=== PATIENT | female | born 1990 | race Two or more races ===

== ENCOUNTER 2023-06-04 15:30 | Observation (INO) | payer SELFPAY ==
[~2023-06-04] VITALS: Ht 154.9 cm; Wt 69.4 kg
[2023-06-04] MEDS ORDERED: METF-370 PO (16:43)
[2023-06-04] MEDS ORDERED: PREN-129 OR (16:44)
== END 2023-06-04 17:00 | disposition home or self-care (01) ==
LOC: LDRP 15:30
PROVIDERS: ADMIT Obstetrics & Gynecology; ATTEND Obstetrics & Gynecology
DX: O24.419 Gestational diabetes mellitus in pregnancy, unspecified control (principal); Z3A.37 37 weeks gestation of pregnancy
CPT/HCPCS: 59025; 76818; 81002; 82962; G0378

== ENCOUNTER 2023-06-11 18:38 | Observation (INO) | payer MEDICAID ==
[~2023-06-11 18:38] MED LIST: METF-370 PO; PREN-129 OR
== END 2023-06-11 20:31 | disposition home or self-care (01) ==
LOC: LDRP 18:38
PROVIDERS: ADMIT Obstetrics & Gynecology; ATTEND Obstetrics & Gynecology
DX: O24.419 Gestational diabetes mellitus in pregnancy, unspecified control (principal); Z3A.38 38 weeks gestation of pregnancy
CPT/HCPCS: 59025; 76818; 81002; 82948; 82962; 94760; G0378

== ENCOUNTER 2023-06-15 15:54 | Observation (INO) | payer MEDICAID | END 2023-06-15 18:04 | disposition home or self-care (01) | LOC: LDRP 15:54 | PROVIDERS: ADMIT Obstetrics & Gynecology; ATTEND Obstetrics & Gynecology | DX: O24.419 Gestational diabetes mellitus in pregnancy, unspecified control (principal); Z3A.38 38 weeks gestation of pregnancy | CPT/HCPCS: 59025; 76818; 81002; 82948; 82962; G0378 ==

== ENCOUNTER 2023-06-17 04:18 | Inpatient (IN) | payer MEDICAID ==
[~2023-06-17] VITALS: Ht 152.4 cm; Wt 69.9 kg
[2023-06-17] MEDS ORDERED: BUTORPHANOL TARTRATE 2 MG/1 ML VIAL IV PRN ×2 (04:45)
[2023-06-17 05:09] LABS: Basophils # (auto) 0.1 10 ^3/uL (0-0.2); Basophils % (auto) 0.5 % (0.0-2.0); Eosinophils # (auto) 0.1 10 ^3/uL (0-0.8); Hematocrit 34.4 % (36.0-46.0); Hemoglobin 11.7 g/dL (12.2-16.2); Lymphocytes # (auto) 2.9 10 ^3/uL (0.4-5.4); Lymphocytes % (auto) 27.3 % (10.0-50.0); Mean Corpuscular Hemoglobin 32.3 pg (28.0-32.0); Monocytes # (auto) 0.7 10 ^3/uL (0-1.3); Monocytes % (auto) 6.9 % (0.0-12.0); Neutrophils # (auto) 6.8 10 ^3/uL (1.6-8.6); Neutrophils % (auto) 64.3 % (37.0-80.0); Nucleated Red Blood Cells % 0.2 %; Red Blood Cells 3.62 10^6/uL (4.0-5.20); White Blood Cell 10.5 10^3/uL (4.4-10.8)
[2023-06-17 05:14] LABS: Urine Bacteria FEW /hpf (None Seen); Urine Blood Negative /uL (Negative); Urine Clarity Clear (Clear); Urine Color Colorless (Yellow); Urine Protein, UAD Negative (Negative); Urine Specific Gravity 1.002 (1.001-1.035); Urine Urobilinogen Normal (Negative); Urine WBC <1 /hpf (0 - 5)
[2023-06-17 05:23] LABS: INR 0.98 (0.9-1.15); Partial Thromboplastin Time 25.6 SEC (24.5-34.5); Prothrombin Time 10.3 sec (9.3-11.8)
[2023-06-17 05:24] LABS: Amphetamine Screen, Urine Neg (NEGATIVE)
[2023-06-17 05:25] LABS: Benzodiazephine Screen, Urine Neg (NEGATIVE)
[2023-06-17 05:26] LABS: Barbiturate Scree,Urine Neg (NEGATIVE); Cannabinoid Screen, Urine Neg (NEGATIVE); Cocaine Screen, Urine Neg (NEGATIVE); Opiate Scree,Urine Neg (NEGATIVE); Phencyclidine Screen, Urine Neg (NEGATIVE)
[2023-06-17 05:27] LABS: Alanine Aminotransferase 26 U/L (7-40); Albumin 3.9 g/dL (3.2-4.8); Alkaline Phosphatase 127 U/L (46-116); Anion Gap 7 (5-15); Aspartate Aminotransferase 27 U/L (13-40); Bilirubin, Total 0.5 mg/dL (0.2-1.0); Calcium 9.6 mg/dL (8.5-10.1); Carbon Dioxide 27 mmol/L (20-30); Chloride 104 mmol/L (98-107); Glucose 83 mg/dL (74-106); Potassium 3.5 mmol/L (3.5-5.1); Sodium 138 mmol/L (136-145); Total Protein 6.3 g/dL (5.7-8.2)
[2023-06-17 05:28] LABS: BUN/Creatinine Ratio 8.8 (10.0-20.0); Blood Urea Nitrogen < 5 mg/dL (9-23)
[2023-06-17] MEDS ORDERED: ACCU-CHEK COMFORT CURVE STRIP VI SCH (06:00)
[2023-06-17] MEDS: miSOPROStol 50 MCG per PRE-CUT 1/2 TAB PO PRN (07:10)
[2023-06-17] MEDS ORDERED: LIDOCAINE HCL 2 %PF INJ 10ML AMP IJ ONE (09:30)
[2023-06-17] MEDS ORDERED: NALOXONE HCL 0.4 MG/ML VIAL IV ONE (09:30)
[2023-06-17] MEDS: LACTATED RINGER'S 1,000 ML IV SCH (10:45)
[2023-06-17] MEDS ORDERED: LACT. RINGERS/OXYTOCIN 20UNITS 500 ML IV ONE ×2 (11:15→11:45)
[2023-06-17] MEDS ORDERED: FAMOTIDINE (10MG/ML) 2ML VL IV PRN (14:15)
[2023-06-17] MEDS ORDERED: diphenhdrAMINE HCL 50 MG/1 ML VL IV PRN (14:15)
[2023-06-17] MEDS: fentaNYL CITRATE 100 MCG/2 ML VL IV ONE (14:24)
[2023-06-17] MEDS: ROPIVACAINE HCL 200 ML ONE (14:25)
[2023-06-17] MEDS: LACTATED RINGER'S 1,000 ML IV ONE (14:27)
[2023-06-17] MEDS: ePHEDrine SULFATE 50 MG/ML AMP IV ONE (15:52)
[2023-06-17] MEDS ORDERED: TERBUTALINE SULFATE 1 MG/ML 1ML VIAL SC PRN (16:15)
[2023-06-17] MEDS: LACT. RINGERS/OXYTOCIN 20UNITS 1,000 ML IV SCH (16:43)
[2023-06-17] MEDS ORDERED: MINERAL OIL TOPICAL 10ml TOP ONE (21:18)
[2023-06-18] MEDS ORDERED: IBUPROFEN 600 MG TAB PO PRN (00:45)
[2023-06-18] MEDS: DERMOPLAST 60ML BOTTLE TOP PRN (00:55)
[2023-06-18] MEDS: PHISODERM TOP SOLN 240ML BTL TOP PRN (00:55)
[2023-06-18] MEDS: WITCH HAZEL-GLYCERIN PAD TOP PRN (00:55)
[2023-06-18] MEDS: TRANEXAMIC ACID 1,000 MG in SODIUM CHL 0.9% 100 ML IV ONE ×2 (01:11→01:13)
[2023-06-18] MEDS: ceFAZolin 2 GM/D5W50ml 50 ML IV ONE (01:11)
[2023-06-18] MEDS: LIDOCAINE 2%HCL (LOCAL ANESTH.) INJ 20ML MDV IJ PRN (01:17)
[2023-06-18] MEDS: ACETAMINOPHEN 325 MG TAB PO PRN (02:34)
[2023-06-18 02:48] LABS: Basophils # (auto) 0.1 10 ^3/uL (0-0.2); Basophils % (auto) 0.4 % (0.0-2.0); Eosinophils # (auto) 0 10 ^3/uL (0-0.8); Eosinophils % (auto) 0.1 % (0.0-7.0); Hematocrit 29.3 % (36.0-46.0); Hemoglobin 9.7 g/dL (12.2-16.2); Lymphocytes # (auto) 2.7 10 ^3/uL (0.4-5.4); Lymphocytes % (auto) 13.4 % (10.0-50.0); Mean Corpuscular Hemoglobin 31.5 pg (28.0-32.0); Mean Corpuscular Hgb Conc. 32.9 g/dL (32.0-36.0); Mean Corpuscular Volume 95.7 fL (80.0-100.0); Monocytes # (auto) 1.2 10 ^3/uL (0-1.3); Monocytes % (auto) 6.1 % (0.0-12.0); Neutrophils # (auto) 15.8 10 ^3/uL (1.6-8.6); Red Blood Cells 3.06 10^6/uL (4.0-5.20); Red Cell Distribution Width 14.2 % (11.8-14.3); White Blood Cell 19.8 10^3/uL (4.4-10.8)
[2023-06-18] MEDS ORDERED: ONDANSETRON ODT 4 MG TAB PO PRN (03:45)
[2023-06-18 07:00] VITALS: BP 84/53; PULSE 81; RESP 16; TEMP 98.1; O2SAT 95
[2023-06-18 08:06] LABS: RPR Non Reactive (Non Reactive)
[2023-06-18 11:00] VITALS: BP 105/55; PULSE 92; RESP 16; TEMP 98.3; O2SAT 98
[2023-06-18] MEDS ORDERED: miSOPROStol 100 mcg TAB PO ONE (14:31)
[2023-06-18] MEDS ORDERED: TRANEXAMIC ACID 1,000 mg/10ml INJ VIAL IV ONE (14:31)
[2023-06-18 15:00] VITALS: BP 107/62; PULSE 86; RESP 16; TEMP 98.9; O2SAT 97
[2023-06-18 19:00] VITALS: BP 107/86; PULSE 93; RESP 16; TEMP 98.6; O2SAT 96
[2023-06-18] MEDS ORDERED: DOCUSATE SOD 100 MG CAP PO SCH (22:00)
[2023-06-18 23:10] VITALS: BP 104/82; PULSE 84; RESP 16; TEMP 98.2; O2SAT 97
[2023-06-19 03:00] VITALS: BP 102/76; PULSE 88; RESP 16; TEMP 98; O2SAT 98
[2023-06-19 06:38] VITALS: BP 97/55; PULSE 81; RESP 16; TEMP 98.5; O2SAT 96
[2023-06-19 11:30] VITALS: BP 99/60; PULSE 92; RESP 16; TEMP 98.4; O2SAT 97
[2023-06-19 18:06] LABS: Treponema pallidum Ab (FTA-Ab) Non Reactive (Non Reactive)
== END 2023-06-19 14:35 | disposition home or self-care (01) | DRG 560 ==
LOC: LDRP 04:18
PROVIDERS: ADMIT Obstetrics & Gynecology; ATTEND Obstetrics & Gynecology
PROC: 10E0XZZ Delivery of Products of Conception, External Approach (ICD-10-PCS; principal; 2023-06-17)
PROC: 0UQMXZZ Repair Vulva, External Approach (ICD-10-PCS; 2023-06-17)
PROC: 3E0S3BZ Introduction of Anesthetic Agent into Epidural Space, Percutaneous Approach (ICD-10-PCS; 2023-06-17)
PROC: 00HU33Z Insertion of Infusion Device into Spinal Canal, Percutaneous Approach (ICD-10-PCS; 2023-06-17)
DX: O24.429 Gestational diabetes mellitus in childbirth, unspecified control (principal); Z37.0 Single live birth; R71.0 Precipitous drop in hematocrit; O70.0 First degree perineal laceration during delivery; Z3A.39 39 weeks gestation of pregnancy
CPT/HCPCS: 36415; 59025; 59409; 62282; 80053; 80307; 81001; 81002; 82948; 82962; 85025; 85610; 85730; 86592; 86850; 86900; 86901; 94760; 96360; 96361; 96365; 96366; G0378; J2590; J3490